=== PATIENT | male | born 1975 | race African-American/Black ===

== ENCOUNTER 2019-07-11 19:02 | Inpatient (IN) | payer OTHER ==
[~2019-07-11] VITALS: Ht 203.2 cm; Wt 158.8 kg
[2019-07-11 19:18] VITALS: BP 113/91
[2019-07-11 19:40] LABS: ABSOLUTE BASOPHILS 0.1 thou/uL (0.0-0.2); ABSOLUTE EOSINOPHILS 0.2 thou/uL (0.0-0.7); ABSOLUTE LYMPHOCYTES 2.5 thou/uL (0.8-5.3); ABSOLUTE MONOCYTES 0.6 thou/uL (0.0-1.2); ABSOLUTE NEUTROPHILS 8.2 thou/uL (1.6-8.1); BASOPHILS 0.6 %; EOSINOPHILS 1.4 %; HEMATOCRIT 48.1 % (42.0-52.0); HEMOGLOBIN 16.2 gm/dL (14.0-18.0); MCH 31.3 pg (26.0-34.0); MCHC 33.6 g/dL (28.0-37.0); MCV 93.2 fL (80.0-100.0); MONOCYTES 5.1 %; NUCLEATED RBCS 0 /100WBC; PLATELET COUNT* 220 thou/uL (150-400); POLYS 70.9 %; RBC 5.16 mil/uL (4.50-6.00); RDW-CV 12.9 % (10.5-14.5); WBC 11.6 thou/uL (4.0-11.0)
[2019-07-11 19:41] LABS: URINE BILIRUBIN NEGATIVE (Negative); URINE BLOOD NEGATIVE (Negative); URINE CLARITY CLEAR; URINE COLOR YELLOW; URINE GLUCOSE-RANDOM 3+ (Negative); URINE KETONES 2+ (Negative); URINE LEUKOCYTES-REFLEX NEGATIVE (Negative); URINE NITRITE-REFLEX NEGATIVE (Negative); URINE PROTEIN NEGATIVE (Negative); URINE UROBILINOGEN 0.2 E.U./dl (0.2-1.0)
[2019-07-11 20:03] LABS: CALCIUM 9.8 mg/dL (8.5-10.1); CREATININE 1.6 mg/dL (0.6-1.3); POTASSIUM 5.3 mmol/L (3.5-5.1)
[2019-07-11 20:05] LABS: ALBUMIN 3.6 g/dL (3.4-5.0); TOTAL BILIRUBIN 1.4 mg/dL (<0.1-1.0); TOTAL PROTEIN 8.7 g/dL (6.4-8.2)
[2019-07-11 20:21] LABS: BE -4.6 mmol/L (-2 to +3); PCO2 VENOUS 39.2 mmHg (41.0-51.0); PO2 VENOUS 119.2 mmHg (35.0-45.0)
[2019-07-11 22:10] VITALS: BP 129/90
[2019-07-11 23:12] VITALS: BP 140/96
[2019-07-12] VITALS (11 sets, daily range): BP systolic 109–148; BP diastolic 62–99
[2019-07-12 08:45] LABS: MPV 9.3 fl. (7.2-11.1); RBC 5.17 mil/uL (4.50-6.00); RDW-CV 12.7 % (10.5-14.5); WBC 9.1 thou/uL (4.0-11.0)
[2019-07-12 08:49] LABS: CREATININE 1.3 mg/dL (0.6-1.3)
[2019-07-12 08:53] LABS: POTASSIUM 3.2 mmol/L (3.5-5.1)
[2019-07-12 08:54] LABS: ALBUMIN 3.5 g/dL (3.4-5.0); MAGNESIUM 2.1 mg/dL (1.8-2.4); TOTAL BILIRUBIN 1.4 mg/dL (<0.1-1.0); TOTAL PROTEIN 8.1 g/dL (6.4-8.2)
--- NOTE | 2019-07-12 14:00 | NUR ---
SPOKE WITH PT. ON PHONE IN ROOM. HE IS AWARE HE WILL TRANSFER UPSTAIRS LATER TODAY. HE SAID HE IS NORMALLY INDEPENDENT AT HOME. 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 HE DOES NOT HAVE MEDICAL INSURANCE. HE BOUGHT A GLUCOMETER IN [place]UNE AFTER BEING DX WITH DIABETES AT ANOTHER HOSPITAL. HE SAID HE DIDN'T REALLY FOLLOW HIS DIET OR TAKE HIS MEDS BECAUSE HE DIDN'T REALLY BELIEVE HE HAD DIABETES. HE SAID NOW HE KNOWS HE DOES. NSG.SHOVEL OPERATOR GAVE HIM DIABETES TEACHING PACKET. NURSING TO EDUCATE PT.PRIOR TO DISCHARGE. COULD BE READY TO DISCHARGE TOMORROW. CM LEFT FOR [facility]ER HERE TO CALL PT.TO DISCUSS DIET. HE DOES NOT HAVE A PCP. [facility] NOT TAKING PT.S AT THIS TIME. CM MADE APPT FOR HIM AT [facility] IN [place] FOR FOLLOW UP FOR MondayJULY 15 AT 10 AM. ADDITIONAL INFORMATION PUT ON DISCHARGE INSTRUCTIONS. FAXED COMM.RESOURCE SHEET AND INFO ABOUT [facility] TO ICU AND RN SAID SHE WOULD GIVE TO HIM. PT.SAID AT THIS TIME HE COULD NOT PURCHASE INSULIN AT [facility] DISCUSSED. CM WILL GET ONE TIME PRESCIPTION ,FOR INSULIN AT DISCHARGE, AT [facility] THROUGH ACCT.THERE. NSG.SHOVEL OPERATOR MADE AWARE. NOTIFY SHOVEL OPERATOR PRIOR TO DISCHARGE SO SHE CAN TAKE CARE OF THIS PROCESS.
[2019-07-12 14:38] LABS: CALCIUM 8.4 mg/dL (8.5-10.1); CREATININE 1.4 mg/dL (0.6-1.3); POTASSIUM 3.3 mmol/L (3.5-5.1)
--- NOTE | 2019-07-12 16:26 | NUR ---
INSULIN DRIP DC'D THIS MORNING AFTER ADMINISTRATION OF INSULIN SUBQ. VSS. BLOOD SUGARS UNDER CONTROL. EDUCATION PROVIDED REGARDING INSULIN ADMINISTRATION AND CARB CONTROLLED DIET. POTASSIUM REPLACED PER PROTOCOL. 1/2 NS CONTD AT 125 MLS/HR. TOLERATING DIET. GOOD OUTPUT. BM THIS SHIFT. REPORT GIVEN TO OKSANA JAIMES.
[2019-07-13 04:57] LABS: CALCIUM 8.6 mg/dL (8.5-10.1); CREATININE 1.1 mg/dL (0.6-1.3); MAGNESIUM 1.8 mg/dL (1.8-2.4); POTASSIUM 3.6 mmol/L (3.5-5.1)
--- NOTE | 2019-07-13 05:35 | NUR ---
PT ALERT AND ORIENTED X4. VSS ON RA. MEDS GIVEN PER EMAR. PT HAD SNACKS THROUGH OUT SHIFT. PT SLEPT OFF AND THIS SHIFT. LAC AND LFA IVs SL. BG THIS AM VIA LAB 326. POSSIBLE DC TODAY. WILL CONTINUE TO MONITOR.
[2019-07-13 07:00] VITALS: BP 128/87
--- NOTE | 2019-07-13 08:07 | NUR ---
INITAL ASSESSMENT COMPLETED CHARTED. VSS. PT IS M/S STATUS. PT DENIES PAIN, N/V/D, SOA. REFER TO COMPUTER CHARTING FOR FURTHER DETAILS. HOURLY ROUNDING IN PLACE FOR PT SAFETY. CLWR.
[2019-07-13 12:11] VITALS: BP 121/81
[2019-07-13 15:35] VITALS: BP 153/80
[2019-07-13 19:20] VITALS: BP 140/73
[2019-07-14 00:20] VITALS: BP 126/83
[2019-07-14 05:07] LABS: HEMATOCRIT 41.5 % (42.0-52.0); MCH 31.3 pg (26.0-34.0); MCHC 33.7 g/dL (28.0-37.0); MCV 92.7 fL (80.0-100.0); MPV 10.6 fl. (7.2-11.1); RBC 4.48 mil/uL (4.50-6.00); WBC 6.4 thou/uL (4.0-11.0)
[2019-07-14 06:01] LABS: CALCIUM 8.1 mg/dL (8.5-10.1); CREATININE 1.1 mg/dL (0.6-1.3); MAGNESIUM 1.8 mg/dL (1.8-2.4); POTASSIUM 3.3 mmol/L (3.5-5.1); TOTAL BILIRUBIN 1.2 mg/dL (<0.1-1.0); TOTAL PROTEIN 6.8 g/dL (6.4-8.2)
--- NOTE | 2019-07-14 06:44 | NUR ---
PT SLEPT OFF AND ON. MORE EDUACTION PROVIDED ON DIABETIC DIET. LFA AND LAC IV SL. CALL LIGHT WITHIN REACH. HOURLY ROUNDINGS MADE. WILL CONTINUE TO MONITOR.
[2019-07-14 12:40] VITALS: BP 126/93
[2019-07-14 16:01] VITALS: BP 130/78
[2019-07-14 19:30] VITALS: BP 141/76
[2019-07-15 00:25] VITALS: BP 133/74
[2019-07-15 05:05] LABS: HEMATOCRIT 41.1 % (42.0-52.0); HEMOGLOBIN 14.2 gm/dL (14.0-18.0); MCH 31.6 pg (26.0-34.0); MCHC 34.6 g/dL (28.0-37.0); MCV 91.3 fL (80.0-100.0); MPV 10.8 fl. (7.2-11.1); RBC 4.5 mil/uL (4.50-6.00); RDW-CV 12.6 % (10.5-14.5); WBC 6.8 thou/uL (4.0-11.0)
[2019-07-15 05:17] LABS: CALCIUM 8.5 mg/dL (8.5-10.1); MAGNESIUM 1.7 mg/dL (1.8-2.4); POTASSIUM 3.3 mmol/L (3.5-5.1); TOTAL BILIRUBIN 1.3 mg/dL (<0.1-1.0); TOTAL PROTEIN 6.7 g/dL (6.4-8.2)
--- NOTE | 2019-07-15 06:42 | NUR ---
PT ALERT AND ORIENTED. VSS ON RA. PT SLEPT OFF AND ON THIS SHIFT. MEDS GIVEN PER EMAR. PT ADMINISTERED INSULIN TO SELF THIS SHIFT. NPO AT CA. ABD US TODAY. ELYTES REPLACEMENT IN PROGRESS. CALL LIGHT WITHIN REACH. HOURLY ROUNDINGS MADE. WILL CONTINUE TO MONITOR.
[2019-07-15 08:00] VITALS: BP 139/86
--- NOTE | 2019-07-15 14:55 | NUR ---
CM left at [facility] to inform of delay in dc and to reschedule his appt scheduled for tomorrow at 10am. Awaiting callback.
[2019-07-15 16:00] VITALS: BP 129/87
--- NOTE | 2019-07-15 16:10 | NUR ---
Per [facility], Pt does not qualify for [place] SUE
--- NOTE | 2019-07-15 18:34 | NUR ---
ASSESSMENT COOMPLETED DOCUMENTED THIS MORNING, PATIENT HAS BEEN UP IN CHAIR ALL DAY AND TOLERATED WELL. BLOOD SUGARS AVERAGING IN THE LOW 200'S. ABD ULTRASOUND OBTAINED THIS MORNING. NO C/O PAIN OR DISCOMFORT. DIABETIC TEACHING PERFORMED THROUGHOUT THE DAY, AND THE STILL OPERATOR WAS IN TO SEE PATIENT FOR TEACHING.
[2019-07-15 20:00] VITALS: BP 150/88
--- NOTE | 2019-07-15 20:00 | NUR ---
RECEIVED REPORT AND ASSUMED CARE OF PT, ASSESSMENT COMPLETED. PT SITTING UP IN CHAIR. NO COMPLAINTS VOICED. WILL CONT TO MONITOR AND ASSIST NEEDED.
--- NOTE | 2019-07-15 21:30 | NUR ---
DISCUSSED INSULIN AND TYPES. DEMONSTRATED HOW TO INJECT AIR AND DRAW UP INSULIN WITH RETURN. PT THEN INJECTED SELF. PT VERY COMPATENT WITH PROCEDURE.
[2019-07-16] VITALS: BP 144/89
--- NOTE | 2019-07-16 06:30 | NUR ---
AWAKE ON AND OFF DURING NIGHT. SITTING UP IN CHAIR. NO CHANGE IN ASSESSMENT. HS GOALS OF REST AND SAFETY ACHIEVED. HOURLY ROUNDING OBSERVED.
--- NOTE | 2019-07-16 06:59 | NUR ---
CONFUSED BUT COOPERATIVE. ASSIST WITH REPOSITIONING. HAVING A PRODUCTIVE COUGH WITH THICK GERBER SECRETIONS. O2 ON AT 4L/NC. TOLERATING PO MEDS WHOLE AND THIN LIQUIDS. TELEMETRY CONT TO SHOW AFIB/SR WITH PAC AND BBB. HS GOALS OF REST AND COMFORT. HOURLY ROUNDING OBSERVED.
[2019-07-16 08:00] VITALS: BP 142/93
[2019-07-16 09:48] VITALS: BP 119/76
[2019-07-16] MEDS ORDERED: TEST STRIPS1 EACH TRANSDERM (10:25)
[2019-07-16] MEDS ORDERED: GLUCOTROL5 MG PO (10:25)
[2019-07-16] MEDS ORDERED: GLUCOPHAGE1000 MG PO (10:25)
[2019-07-16 10:52] VITALS: BP 119/76
--- NOTE | 2019-07-16 12:15 | NUR ---
ASSUMED CARE OF PT AROUND 0730 THIS AM. REFER TO ASSESSMENT. PT EDUCATED THIS SHIFT ON CHECKING OWN BLOOD SUGARS AND DRAWING UP AND ADMINISTERING INSULIN TO SELF. PT REPORTS UNDERSTANDING. PT GIVEN DC INSTRUCTIONS AND VERBALIZES UNDERSTANDING. AWAITING PT'S SIBLING FOR TRANSPORTATION HOME. NO OTHER CONCERNS AT THIS TIME. CLWR. WCTM.
== END 2019-07-16 13:35 | disposition home or self-care (01) | DRG 637 ==
LOC: M.ERS 19:02 → M.TBA-ER 21:12 → M.ICU 21:12 → M.2W 07-12 16:11
PROVIDERS: Internal Medicine; Personal Emergency Response Attendant; ADMIT Internal Medicine
DX: E11.00 Type 2 diabetes mellitus with hyperosmolarity without nonketotic hyperglycemic-hyperosmolar coma (NKHHC) (principal); N17.0 Acute kidney failure with tubular necrosis; R65.10 Systemic inflammatory response syndrome (SIRS) of non-infectious origin without acute organ dysfunction; E66.9 Obesity, unspecified; Z91.11 Patient's noncompliance with dietary regimen; Z68.38 Body mass index [BMI] 38.0-38.9, adult; Z79.4 Long term (current) use of insulin; Z79.84 Long term (current) use of oral hypoglycemic drugs; Z83.3 Family history of diabetes mellitus